=== PATIENT | female | born 1990 | race Caucasian/White ===

== ENCOUNTER 2020-01-14 09:26 | Observation (INO) ==
[2020-01-14] MEDS ORDERED: Ringers Solution, Lactated 1,000 ML IVC ONE (09:51)
[2020-01-14] MEDS ORDERED: CeFAZolin 2,000 MG/50 ML BAG IVPB ONE (09:58)
[2020-01-14] MEDS ORDERED: Metoclopramide 10 MG/2 ML VIAL IVP ONE (09:58)
[2020-01-14] MEDS ORDERED: Famotidine 20 MG/2 ML VIAL IVP ONE (09:58)
[2020-01-14] MEDS ORDERED: Ringers Solution, Lactated 1,000 ML IVC SCH (10:00)
[2020-01-14] MEDS ORDERED: Clindamycin 900 MG/50 ML 900 MG/50 ML IV.SOLN IVPB ONE (10:54)
[2020-01-14] MEDS ORDERED: *HR* Propofol 200 MG/20 ML VIAL IVP ONE (11:52)
[2020-01-14] MEDS ORDERED: Lidocaine -MPF 2% 5 ML VIAL ONE (11:52)
[2020-01-14] MEDS ORDERED: *HR* Midazolam HCl 2 MG/2 ML VIAL ONE (11:52)
[2020-01-14] MEDS ORDERED: *HR* FentaNYL (PF) 100 MCG/2 ML VIAL ONE (11:52)
[2020-01-14 11:55] LABS: Amphetamine Screen,Urine Negative ng/mL (Cutoff=1000); Barbiturate Screen,Urine Negative ng/mL (Cutoff=200); Benzodiazepines Screen,Urine Negative ng/mL (Cutoff=200); Cannabinoid Screen,Urine Negative ng/mL (Cutoff = 50); Cocaine Screen,Urine Negative ng/mL (Cutoff= 300); Opiate Screen,Urine Negative ng/mL (Cutoff=300); Phencyclidine Screen,Urine Negative ng/mL (Cutoff=25)
[2020-01-14] MEDS ORDERED: Ondansetron 4 MG/2 ML VIAL ONE (12:24)
[2020-01-14] MEDS ORDERED: Dexamethasone 4 MG/ML VIAL ONE (12:24)
[2020-01-14] MEDS ORDERED: Ketorolac 30 MG/ML VIAL ONE (12:25)
[2020-01-14] MEDS ORDERED: *HR* Labetalol 20 MG/4 ML SYRINGE IVP PRN (13:10)
[2020-01-14] MEDS ORDERED: *HR* HYDROmorphone (PF) 1 MG/ML SYRINGE IVP PRN (13:10)
[2020-01-14] MEDS ORDERED: Acetaminophen IV 1,000 MG/100 ML INFUS..BTL IVPB ONE (13:10)
[2020-01-14] MEDS ORDERED: *HR* HYDROmorphone 2 MG TABLET PO PRN (13:10)
[2020-01-14] MEDS ORDERED: *HR* Promethazine 25 MG/ML VIAL IVP PRN (13:10)
[2020-01-14] MEDS ORDERED: Methylergonovine 0.2 MG/ML AMPUL IM ONE (14:19)
[2020-01-14] MEDS ORDERED: miSOPROStoL 100 MCG TABLET PO ONE (14:19)
[2020-01-14 15:05] VITALS: BP 112/61
== END 2020-01-14 14:20 | disposition home or self-care (01) ==
LOC: SAMDAY 09:26 → 1NENULAB 09:26
PROVIDERS: ADMIT Obstetrics & Gynecology; ATTEND Obstetrics & Gynecology